=== PATIENT | male | born 1990 | race Caucasian/White ===

== ENCOUNTER → 2016-11-08 | Outpatient (CLI) | payer BC | LOC: COL.VAS 07:42 → COL.CARD 09:00 | DX: R07.89 Other chest pain (principal) ==

== ENCOUNTER → 2017-02-27 | Outpatient (CLI) | payer BC | LOC: COL.PUL 08:00 | DX: R06.02 Shortness of breath (principal); R93.8 Abnormal findings on diagnostic imaging of other specified body structures ==

== ENCOUNTER 2017-03-06 08:47 | Day surgery (SDC) | payer BC ==
[2017-03-06] VITALS (8 sets, daily range): BP systolic 95–121; BP diastolic 56–81; PULSE 58–78; TEMP 98
[~2017-03-06] VITALS: Ht 182.9 cm; Wt 68.7 kg
== END 2017-03-06 13:06 | disposition home or self-care (01) ==
LOC: SDCO 08:47
DX: J18.9 Pneumonia, unspecified organism (principal)
CPT/HCPCS: J0456; J2704; J2920; J7050; J7120

== ENCOUNTER → 2017-04-06 | Outpatient (CLI) | payer BC | LOC: COL.PUL 09:58 | DX: R06.02 Shortness of breath (principal); R93.8 Abnormal findings on diagnostic imaging of other specified body structures | CPT/HCPCS: J7674 ==